=== PATIENT | male | born 1965 | race Caucasian/White ===

== ENCOUNTER 2016-03-18 09:40 | Inpatient (IN) | payer MEDICAID ==
[2016-03-18] MEDS ORDERED: NS 1,000 ML IV ONE (09:56)
[2016-03-18] MEDS ORDERED: DILTIAZEM 25 MG/5 ML VIAL IV ONE ×2 (09:56→10:54)
[2016-03-18] MEDS ORDERED: SODIUM CHLORIDE 0.9% 10 ML FLUSH FLUSH PRN (09:56)
--- NOTE | 2016-03-18 09:58 | EDPRACDOC ---
- General Information Mode of Arrival: Car - History of Present Illness Onset: 1 HOUR AGO HPI: HERE FOR RAPID HEART BEAT. NO HX OF AFIB OR IRREGULAR HEART BEAT. HEAVY DRINKER. 6PK OR MORE DAILY. LATER SAID HE HAD A NOSEBLEED WHICH HAS NOW STOPPED. DENIES HEMATEMESIS OR HEMATOCHEZIA. Symptoms Started: Reports: Gradually Relevant History: Reports: None Worsens with: Reports: Nothing Associated signs & symptoms: Reports: None Chest Pain Location: Reports: No Pain Pain Quality: Reports: None Pain Radiation: Reports: None <Osmany Willis - Last Filed: 03/18/16 11:36> <Yojana Brito - Last Filed: 03/18/16 22:00> - General Information Stated Complaint: HEART PALPITATIONS/NOSE BLEED Time Seen by Provider: 03/18/16 09:56 Home Medications: Home Medications Alprazolam [Xanax] 1 mg PO BID PRN 11/09/13 Amlodipine [Norvasc] 10 mg PO DAILY 11/09/13 CloNIDine (Antihypertensive) [Catapres] 0.2 mg PO TID 11/09/13 Hydralazine HCl 100 mg PO TID 11/09/13 Lisinopril/Hydrochlorothiazide [Lisinopril-Hctz 20-25 mg Tab] 1 each PO DAILY Metoprolol Tartrate [Lopressor] 50 mg PO BID 11/09/13 Oxycodone HCl [Oxycodone Immediate Release] 15 mg PO QID 11/09/13 Potassium Chloride 10 meq PO DAILY 11/09/13 Allergies/Adverse Reactions: Allergies Allergy/AdvReac Type Severity Reaction Status Date / Time No Known Allergies Allergy Verified 03/18/16 17:10 ED Past Medical History - History Reviewed Yes Nurses notes reviewed and agree except as marked - Patient Medical History Cardiac History: Reports: Hypertension Psychological History: Denies: Depression - Social Medical History Smoking Status: Heavy tobacco smoker (5 or more cigarettes/day or daily pipe/ cigar) <Osmany Willis - Last Filed: 03/18/16 11:36> EDM Review of Systems - Review of Systems ROS Negative Except as Marked: Yes All systems reviewed and were negative except as marked <Osmany Willis - Last Filed: 03/18/16 11:36> - Physical Exam Constitutional: Alert (Awake), No apparent distress Oriented to: Time, Person, Place Last recorded Vital Signs: Last Vital Signs Temp 97.5 F 03/18/16 09:43 Pulse 128 H 03/18/16 09:43 Resp 22 03/18/16 09:43 BP 180/72 H 03/18/16 09:43 Pulse Ox 97 03/18/16 09:43 Oxygen Pulse Oxygen Saturation 97 O2 Device Room Air Oxygen Flow Rate Fraction of Inspired Oxygen ( FIO2) - HEENT Head: Normal ( normocephalic) Eye Exam: Normal (PERRL, EOMI, Sclera white) Oropharynx: Normal (Pharynx:Moist without exudate,Gums-no swelling) ENT EAC: Normal TMJ: Normal Nose: No Symptoms Reported (septum midline) Neck: Normal (FROM, trachea at midline) - Respiratory/Cardiovascular Respiratory: Normal - CTA (BBS clear to auscultation without adventitious sounds ) Cardiovascular: Tachycardia, Irregular - GI Auscultation: Normal (NABS) Palpation: Normal (Soft,No rebound or guarding, non distended) Tenderness: Non tender Smith's Sign: Negative Rectal Exam: Normal, Heme negative stool - Musculoskeletal Back: Normal (Non-Tender) Extremities: Normal (Normal tone, Pulses 2+ No cyanosis or edema, FROM) - Integumentary Skin: Normal, Warm, Dry Lymphatics: Normal (no adenopathy) - Neurologic Memory Impaired: Normal Motor Function: Normal (Normal tone, Pulses 2+ No cyanosis or edema, FROM) Cranial Nerve: Normal (CN II-X11 intact sensation, strength 5/5) Cerebellar: Normal Mood Description: Normal Perception: Normal <Osmany Willis - Last Filed: 03/18/16 11:36> - Physical Exam Last recorded Vital Signs: Last Vital Signs Temp 98.1 F 03/18/16 16:55 Pulse 81 03/18/16 20:00 Resp 18 03/18/16 16:55 BP 142/89 03/18/16 13:41 Pulse Ox 97 03/18/16 20:00 Oxygen Pulse Oxygen Saturation 96 O2 Device Room Air Oxygen Flow Rate 2 Fraction of Inspired Oxygen ( FIO2) <Yojana Brito - Last Filed: 03/18/16 22:00> ED Procedures - Nasal Cautery and Pack Informed of risks, benefits and alternatives described: Yes Informed Consent Signed: Verbal Indication: Anterior Epistaxis Silver Nitrate cautery performed around bleeding site: Yes Hemostasis was obtained: Yes Packing used: Expanding sponge <Osmany Willis - Last Filed: 03/18/16 11:36> - Nasal Cautery and Pack Nasal Cautery and Pack Notes:: THE NASAL PACK FELL OUT WHILE PT AN INPATIENT. DR. DUARTE IS NOT DETECTIVE PRECINCT, SO DR. DOMINGUEZ ASKED ME TO RE PACK PATIENT. I SPOKE WITH PT AND HE WAS IN AGREEMENT. THE PT CLEARED CLOTS FROM HIS NOSE. HIS RIGHT NARE WAS PACKED WITH A RAPID RHINO. 5 CC OF AIR WAS PLACED IN THE BALLOON. PT TOLERATED PROCEDURE WELL. <Yojana Brito - Last Filed: 03/18/16 22:00> - Results 03/18/16 10:05 03/18/16 10:05 - EKG EKG #1 Kiefer: Normal Rhythm: Afib Block: None Hypertrophy: None ST: Normal <Osmany Willis - Last Filed: 03/18/16 11:36> - Results 03/18/16 10:05 03/18/16 10:05 WBC 6.5 xk/uL (3.8-10.8) 03/18/16 10:05 RBC 4.45 xM/uL (4.70-6.10) L 03/18/16 10:05 Hgb 14.7 g/dL (14.0-18.0) 03/18/16 10:05 Hct 42.3 % (42-52) 03/18/16 10:05 MCV 95 fL (80-94) H 03/18/16 10:05 MCH 33.1 pg (27-32) H 03/18/16 10:05 MCHC 34.8 g/dl (33-36) 03/18/16 10:05 RDW 12.9 % (11.5-14.5) 03/18/16 10:05 Plt Count 243 xk/uL (130-400) 03/18/16 10:05 MPV 7.7 fL (7.4-10.4) 03/18/16 10:05 Neut % (Auto) 60.1 % (45-76) 03/18/16 10:05 Lymph % (Auto) 26.6 % (17-44) 03/18/16 10:05 [place] % (Auto) 9.2 % (3-10) 03/18/16 10:05 Eos % (Auto) 2.2 % (0-5) 03/18/16 10:05 Baso % (Auto) 1.9 % (0-2) 03/18/16 10:05 Absolute Neuts (auto) 3.90 xk/uL (1.7-8.2) 03/18/16 10:05 Absolute Lymphs (auto) 1.69 xk/uL (0.65-4.75) 03/18/16 10:05 PT 9.8 SEC (9.2-11.2) 03/18/16 10:05 INR 1.0 03/18/16 10:05 APTT 26.4 SEC (22-35) 03/18/16 10:05 Sodium 143 mEq/L (137-146) 03/18/16 10:05 Potassium 3.7 mEq/L (3.5-5.1) 03/18/16 10:05 Chloride 104 mEq/L (98-107) 03/18/16 10:05 Carbon Dioxide 23 mMOL/L (22-33) 03/18/16 10:05 Anion Gap 20 mEq/L (8-16) H 03/18/16 10:05 BUN 9 MG/DL (9-20) 03/18/16 10:05 Creatinine 0.60 MG/DL (0.66-1.25) L 03/18/16 10:05 Estimated GFR (MDRD) > 60 mL/min (>=60) 03/18/16 10:05 Glucose 140 MG/DL (70-99) H 03/18/16 10:05 Calculated Osmolality 276 MOs/Kg (270-290) 03/18/16 10:05 Calcium 9.4 MG/DL (8.4-10.2) 03/18/16 10:05 Total Bilirubin 0.6 MG/DL (0.2-1.3) 03/18/16 10:05 AST 44 IU/L (17-59) 03/18/16 10:05 ALT 39 IU/L (21-72) 03/18/16 10:05 Alkaline Phosphatase 99 IU/L (38-126) 03/18/16 10:05 Troponin I 0.04 ng/mL (<.04) 03/18/16 17:00 Rnt-R-Sywvmhyypxd Pept 376 pg/mL (0-450) 03/18/16 10:05 Total Protein 8.0 G/DL (6.3-8.2) 03/18/16 10:05 Albumin 4.3 G/DL (3.5-5.0) 03/18/16 10:05 TSH 0.92 uIU/mL (0.5-4.67) 03/18/16 10:05 Lab Results 03/18/16 03/18/16 03/18/16 10:05 10:05 10:05 WBC 6.5 RBC 4.45 L Hgb 14.7 Hct 42.3 MCV 95 H MCH 33.1 H MCHC 34.8 RDW 12.9 Plt Count 243 MPV 7.7 Neut % (Auto) 60.1 Lymph % (Auto) 26.6 [place] % (Auto) 9.2 Eos % (Auto) 2.2 Baso % (Auto) 1.9 Absolute Neuts (auto) 3.90 Absolute Lymphs (auto) 1.69 PT 9.8 INR 1.0 APTT 26.4 Sodium Potassium Chloride Carbon Dioxide Anion Gap BUN Creatinine Estimated GFR (MDRD) Glucose Calculated Osmolality Calcium Total Bilirubin AST ALT Alkaline Phosphatase Troponin I Nmo-Z-Rgywbcamwqa Pept Total Protein Albumin TSH 0.92 03/18/16 10:05 WBC RBC Hgb Hct MCV MCH MCHC RDW Plt Count MPV Neut % (Auto) Lymph % (Auto) [place] % (Auto) Eos % (Auto) Baso % (Auto) Absolute Neuts (auto) Absolute Lymphs (auto) PT INR APTT Sodium 143 Potassium 3.7 Chloride 104 Carbon Dioxide 23 Anion Gap 20 H BUN 9 Creatinine 0.60 L Estimated GFR (MDRD) > 60 Glucose 140 H Calculated Osmolality 276 Calcium 9.4 Total Bilirubin 0.6 AST 44 ALT 39 Alkaline Phosphatase 99 Troponin I < 0.01 Pht-Q-Nucjxsspnwo Pept 376 Total Protein 8.0 Albumin 4.3 TSH <Yojana Brito - Last Filed: 03/18/16 22:00> ED Critical Care Note - Critical Care Note Total Time (mins): 34 <Osmany Willis - Last Filed: 03/18/16 11:36> - Departure Yes I personally saw and evaluated the patient. Disposition: Admit IP To This Hospital Decision to Admit Time: 11:36 (MITALI) Decision to admit date: 03/18/16 Decision to admit: from ED <Osmany Willis - Last Filed: 03/18/16 11:36> <Yojana Brito - Last Filed: 03/18/16 22:00> - Departure Condition: Good Final Diagnosis: Palpitations, NEW ONSET AFIB WITH RVR, EPISTAXIS, NASAL PACKING BY ANNABELLE, NASAL PACKING BY LEIA
[2016-03-18] MEDS ORDERED: Enoxaparin 1 mg per kg per dose SQ ONE (10:05)
[2016-03-18 10:15] LABS: AUTOMATED BASOPHIL 1.9 % (0-2); AUTOMATED EOSINOPHIL 2.2 % (0-5); AUTOMATED LYMPH 26.6 % (17-44); AUTOMATED MONOCYTE 9.2 % (3-10); AUTOMATED NEUTROPHIL 60.1 % (45-76); MPV 7.7 fL (7.4-10.4)
[2016-03-18] MEDS ORDERED: ENOXAPARIN SODIUM 80 MG, ENOXAPARIN SODIUM 30 MG SQ ONE ×2 (10:15)
[2016-03-18 10:30] LABS: BLOOD UREA NITROGEN 9 MG/DL (9-20); CALCIUM 9.4 MG/DL (8.4-10.2); CALCULATED OSMOLALITY 276 MOs/Kg (270-290); CHLORIDE 104 mEq/L (98-107); GLUCOSE 140 MG/DL (70-99); SODIUM LEVEL 143 mEq/L (137-146)
[2016-03-18 10:33] LABS: PARTIAL THROMB. TIME 26.4 SEC (22-35)
--- NOTE | 2016-03-18 10:53 | DIRPT ---
CLINICAL DATA: Rapid heartbeat and chest pain. EXAM: PORTABLE CHEST 1 VIEW COMPARISON: 12/31/2015 FINDINGS: Heart is enlarged. There is pulmonary vascular congestion. No overt edema. No focal consolidations or pleural effusions. IMPRESSION: 1. Shallow inflation. 2. Cardiomegaly. Electronically Signed By: Vicky Alonso M.D. On: 03/18/2016 10:51
[2016-03-18] MEDS ORDERED: Diltiazem HCl 100 MG in D5W 100 ML IV SCH (10:55)
[2016-03-18] MEDS ORDERED: PANTOPRAZOLE 40 MG VIAL IV ONE (10:59)
[2016-03-18] MEDS ORDERED: CHLORDIAZEPOXIDE 25 MG CAP PO SCH ×2 (11:00)
[2016-03-18] MEDS ORDERED: SILVER NITRATE APPLICATOR TOP ONE (11:23)
[2016-03-18] MEDS ORDERED: COCAINE 4% TOPICAL SOLN 4 ML BOT TOP ONE (11:23)
[2016-03-18] MEDS ORDERED: NITROGLYCERINE 0.4 MG TAB SL PRN (12:15)
[2016-03-18] MEDS ORDERED: Non-Formulary Medication ITEM (Alprazolam [Xanax] 1 MG) PO PRN (12:37)
--- NOTE | 2016-03-18 12:40 | HISTPHYS ---
- Chief Complaint Awakened 8:30am this morning with palpitations and knows blood either right side of his nostril and tightness in his chest. - History of Present Illness Patient is a 50-year-old white male who came in the emergency room this morning complaining of palpitations upon awakening right nose bleed coughing up blood from the nose bleed add tightness in his chest. He was seen by the emergency room doctor who was concerned about his rapid atrial fib finding a rate between 150 and 170 he was given IV Cardizem right naris was packed and because of the atrial fib and chest pain was given a full dose of Lovenox. The patient admits to taking up to 10 aspirin a day in addition to intermittent Naprosyn. He has a history of hypertension for which she takes multiple medications and blood pressure is documented 180/70 when he initially arrived. He also smokes a half pack cigarettes a day in addition to the 2-6 packs of beer a day he consumes. He has never had any problems with irregular heartbeat or chest discomfort nor has he had any issues with a nose bleed. - Medical History Cardiac History: Reports: Hypertension Musculoskeletal History: Reports: Arthritis, Osteoarthritis Neurological History: Reports: Other (Chronic back pain leg pain arm pain from previous trauma.) Psychological History: Denies: Depression - Surgical History Reports: Other (Musculoskeletal surgeries for multiple injuries including a fractured neck) Right arm plate and other surgeries from trauma he suffered over the years. - Medictions/Allergies Allergies No Known Allergies Allergy (Verified 03/18/16 10:56) Current Medication List: Reviewed Home Medications Alprazolam [Xanax] 1 mg PO BID PRN 11/09/13 Amlodipine [Norvasc] 10 mg PO DAILY 11/09/13 CloNIDine (Antihypertensive) [Catapres] 0.2 mg PO TID 11/09/13 Hydralazine HCl 100 mg PO TID 11/09/13 Lisinopril/Hydrochlorothiazide [Lisinopril-Hctz 20-25 mg Tab] 1 each PO DAILY Metoprolol Tartrate [Lopressor] 50 mg PO BID 11/09/13 Oxycodone HCl [Oxycodone Immediate Release] 15 mg PO QID 11/09/13 Potassium Chloride 10 meq PO DAILY 11/09/13 - Family History Reports: Hypertension - Social History Travel Outside of [place] in the Last 3 Months?: No Lives: with Significant Other Smoking Status: Heavy tobacco smoker (5 or more cigarettes/day or daily pipe/ cigar) Social History: Reports: Alcohol Use (Two 6 packs of beer a day). Denies: Substance Use Disorder - Review of Systems Constitutional: No Symptoms Reported (No Fever, chills, wt loss/gain, diaphoresis,fatigue/malaise.) Eyes: No Symptoms Reported (No blurry vision, visual changes, eye pain, or eye redness.) Ears: No Symptoms Reported (No ear pain or discharge) Nose: Bleeding (Right nostril), Congestion (With packing) Mouth: No Symptoms Reported (No oropharyngeal lesions or erythema) Throat/Neck: No Symptoms Reported (No throat pain or swelling.No oropharyngeal lesions or erythema.) Respiratory: No Symptoms Reported (No cough, wheezing, or shortness of breath.) Cardiovascular: Chest Pain (Associated with his palpitation), Palpitations Gastrointestinal: No Symptoms Reported (No abdominal pain, nausea, vomiting, diarrhea, constipation, or bloody stool.) Genitourinary: No Symptoms Reported (No dysuria or hematuria.) Neurological: No Symptoms Reported (No headache, dizziness, seizures, or focal weakness.) Musculoskeletal:: Arthritis, Stiffness, Other (Multiple limb pain due to previous surgeries and fractures) Integumentary: No Symptoms Reported (no rashes or lesions) Allergic/Immunologic: No Symptoms Reported (no rashes or lesions) Hematologic: Easy Bleeding (Now with the nose bleed and taking multiple aspirins and Naprosyn) Endocrine: No Symptoms Reported (No thyroid issues, polyuria, or polydipsia.) Psychiatric: No Symptoms Reported (Fully oriented, with normal and appropriate affect.) - Physical Exam Vital Signs: Initial Vitals Temperature 97.5 F 03/18/16 09:43 Pulse Rate 128 H 03/18/16 09:43 Respiratory Rate 22 03/18/16 09:43 Blood Pressure 180/72 H 03/18/16 09:43 Pulse Oxygen Saturation 97 03/18/16 09:43 Constitutional: Alert (Awake, Fully oriented. Normal and appropriate affect.Well appearing. Well nourished.), No apparent distress Oriented to: Time, Person, Place - HEENT Head: Normal (normocephalic, atraumatic.), Other (No cervical lymphadenopathy. No supraclavicular lymphadenopathy. Neck: No palpable mass, supple , trachea midline.) Eye: Normal (pupils equal, reactive to light, and round; EOMI, Sclera white) Oropharynx: Normal (Pharynx: Moist without exudate,Gums-no swelling, No oropharyngeal lesions or erythema, Mucous membranes are dry.) ENT EAC: Normal (No oropharyngeal lesions or erythema. Mucous membranes are dry. ) TMJ: Normal Nose: Bleeding (Right nostril with packing intact and strength attached unfortunately had is come out and needs epi stat balloon), Other (Right nostril oozing blood) Respiratory: Normal - CTA (Clear to auscultation bilaterally. No wheezing, rales , rhonchi. Chest wall movements are symmetric. No use of accessory muscles to breathe.) Cardiovascular: Tachycardia, Irregular. negative: Diastolic murmur, Systolic murmur, Gallop/S3, Gallop/S4 - GI Auscultation: Normal (normal active sounds) Palpation: Normal (Soft,non distended,nontender. No hepatosplenomegaly.) Tenderness: Non tender (No rebound or guarding) Smith's Sign: Negative - Musculoskeletal Back: Normal (Non-Tender) Extremities: Normal (Normal tone, DP pulses 2+ bilaterally, No cyanosis or edema bilaterally, FROM bilaterally.) Spine: abnormal alignment, limited range of motion, muscle spasm, painful range of motion. negative: normal alignment - Integumentary Skin: Normal (Clean, dry, and intact. No rashes. No lesions.) Lymphatics: Normal (No cervical lymphadenopathy. No supraclavicular lymphadenopathy.) - Neurologic Memory Impaired: Normal Motor Function: Normal (Motor 5/5 throughout.Normal tone, Pulses 2+ No cyanosis or edema, FROM) Cranial Nerve: Normal (CN II-XII intact sensation, strength 5/5) Cerebellar: Normal (Babinski: toes downgoing bilaterally. Intact Finger to nose. Sensory grossly intact to light touch. Intact rapid alternating movements bilaterally. No pronator drift.) Mood Description: Agitated (Mildly agitated with bleeding nose) Thought: Coherent Perception: Normal (Normal and appropriate affect.) - Focused CV Perfusion Exam Vital Signs: Last Vital Signs Temp 97.5 F 03/18/16 09:43 Pulse 135 H 03/18/16 12:32 Resp 18 03/18/16 12:32 BP 149/74 03/18/16 12:32 Pulse Ox 96 03/18/16 12:32 - Lab Results 03/18/16 10:05 03/18/16 10:05 Laboratory Results - last 24 hr 03/18/16 03/18/16 03/18/16 10:05 10:05 10:05 WBC 6.5 RBC 4.45 L Hgb 14.7 Hct 42.3 MCV 95 H MCH 33.1 H MCHC 34.8 RDW 12.9 Plt Count 243 MPV 7.7 Neut % (Auto) 60.1 Lymph % (Auto) 26.6 [place] % (Auto) 9.2 Eos % (Auto) 2.2 Baso % (Auto) 1.9 Absolute Neuts (auto) 3.90 Absolute Lymphs (auto) 1.69 PT 9.8 INR 1.0 APTT 26.4 Sodium 143 Potassium 3.7 Chloride 104 Carbon Dioxide 23 Anion Gap 20 H BUN 9 Creatinine 0.60 L Estimated GFR (MDRD) > 60 Glucose 140 H Calculated Osmolality 276 Calcium 9.4 Total Bilirubin 0.6 AST 44 ALT 39 Alkaline Phosphatase 99 Troponin I < 0.01 Xxn-O-Gztqcrzoxsj Pept 376 Total Protein 8.0 Albumin 4.3 TSH 03/18/16 03/18/16 03/18/16 10:05 13:00 17:00 WBC RBC Hgb Hct MCV MCH MCHC RDW Plt Count MPV Neut % (Auto) Lymph % (Auto) [place] % (Auto) Eos % (Auto) Baso % (Auto) Absolute Neuts (auto) Absolute Lymphs (auto) PT INR APTT Sodium Potassium Chloride Carbon Dioxide Anion Gap BUN Creatinine Estimated GFR (MDRD) Glucose Calculated Osmolality Calcium Total Bilirubin AST ALT Alkaline Phosphatase Troponin I 0.03 0.04 Ztp-Y-Itwoyyloiqo Pept Total Protein Albumin TSH 0.92 - Diagnostic Findings EKG shows rapid atrial fib - Assessment (1) Paroxysmal atrial fibrillation I48.0 - PAROXYSMAL ATRIAL FIBRILLATION Acute Present on Admission: Yes IV Cardizem in emergency room and p.o. Lopressor was increased. Patient already on Norvasc but may need to switch the Norvasc to Cardizem should the increase Lopressor not help. Patient already on Catapres for blood pressure and should help heart rate. (2) Bleeding nose R04.0 - EPISTAXIS Acute Present on Admission: Yes Packing inserted into right nostril by Dr. Willis unfortunately came out and balloon had to be inserted. Afrin spray in left nostril 2 sprays every 8 hours 3 days. Bleed is made worse by Lovenox injection and patient's consumption of aspirin and Naprosyn. (3) Tobacco abuse Z72.0 - TOBACCO USE Acute Present on Admission: Yes Discussed smoking cessation. (4) Alcohol abuse F10.10 - ALCOHOL ABUSE, UNCOMPLICATED Acute Present on Admission: Yes Discussed alcohol consumption cessation. Cover with p.r.n. detox orders and multiple vitamins checking magnesium and phosphorus. (5) Chronic back pain M54.9 - DORSALGIA, UNSPECIFIED; G89.29 - OTHER CHRONIC PAIN Acute Present on Admission: Yes Qualifiers: Back pain location: thoracic back pain Back pain laterality: midline Qualified Code(s): M54.6 - Pain in thoracic spine; G89.29 - Other chronic pain (6) Palpitations R00.2 - PALPITATIONS Acute Present on Admission: Yes Atrial fib causing the sensation of palpitations. Case Care Discussed with: Patient, Nursing Staff, Resource Management Total Time: Time spent process One Hour 25 minutes Critical Care: No Code: [id number]
[2016-03-18] MEDS ORDERED: Pharmacy Order Set Alert SCH (13:00)
[2016-03-18] MEDS ORDERED: METOPROLOL 5 MG/5 ML SDV IV PRN (13:39)
[2016-03-18] MEDS ORDERED: HYDRALAZINE HCL 100 MG PO SCH (14:00)
[2016-03-18] MEDS: OXYCODONE HCL 5 MG TABLET PO SCH ×2 (14:09→19:52)
[2016-03-18] MEDS: CloNIDine 0.2 MG TAB PO SCH ×2 (14:09→22:56)
[2016-03-18] MEDS ORDERED: LORAZEPAM 1 MG TAB PO PRN ×2 (15:46)
[2016-03-18] MEDS ORDERED: LORAZEPAM 2 MG/ML VIAL IV PRN (15:46)
[2016-03-18] MEDS ORDERED: Medication Special Instructions SCH (16:00)
[2016-03-18] MEDS ORDERED: Alcohol Withdrawal Scale Orders XX SCH ×2 (16:00)
[2016-03-18] MEDS ORDERED: Non-Formulary Medication ITEM (Oxycodone Hcl [Oxycodone Immediate Release] 15 MG) PO SCH (16:00)
[2016-03-18] MEDS ORDERED: Vaccine Screening Complete SCH (18:00)
[2016-03-18] MEDS: METOPROLOL TARTRATE 25 MG TAB PO SCH (18:34)
[2016-03-18] MEDS: PANTOPRAZOLE 40 MG TAB PO SCH (19:48)
[2016-03-18] MEDS: LORAZEPAM 2 MG/ML VIAL IV PRN (19:53)
[2016-03-18] MEDS: MORPHINE 2 MG/ML INJECTION IV PRN ×2 (20:33→21:43)
[2016-03-18] MEDS ORDERED: METOPROLOL TARTRATE 50 MG TAB PO SCH (21:00)
[2016-03-18] MEDS ORDERED: DICYCLOMINE 20 MG TAB PO PRN (22:35)
[2016-03-18] MEDS: OXYMETAZOLINE 0.05% NASAL SPRAY NAS SCH (22:50)
[2016-03-18] MEDS: ALPRAZOLAM 0.5 MG TAB PO PRN (22:55)
[2016-03-18] MEDS ORDERED: OXYMETAZOLINE 0.05% NASAL SPRAY NAS SCH (23:00)
[2016-03-18 23:26] LABS: MPV 8.5 fL (7.4-10.4)
[2016-03-19] MEDS: LORAZEPAM 2 MG/ML VIAL IV PRN ×2 (00:16→05:09)
[2016-03-19] MEDS: MORPHINE 2 MG/ML INJECTION IV PRN ×3 (00:16→20:23)
[2016-03-19] MEDS: OXYCODONE HCL 5 MG TABLET PO SCH ×4 (03:18→19:37)
[2016-03-19] MEDS: PANTOPRAZOLE 40 MG TAB PO SCH ×2 (04:37→16:21)
[2016-03-19] MEDS: CloNIDine 0.2 MG TAB PO SCH ×3 (04:37→19:38)
[2016-03-19 05:40] LABS: ALL NEG? NO
[2016-03-19 05:47] LABS: MDMA* NEG (NEGATIVE); METHAMPHETAMINES NEG (NEGATIVE)
[2016-03-19 05:48] LABS: OXYCODONE *POSITIVE* (NEGATIVE)
[2016-03-19 05:50] LABS: LDL (calc.) 86.4 MG/DL (<100); VLDL (calc.) 37.6 MG/DL (5-40)
[2016-03-19] MEDS: OXYMETAZOLINE 0.05% NASAL SPRAY NAS SCH ×2 (06:15→13:23)
[2016-03-19] MEDS ORDERED: FLU VACCINE (Afluria) 0.5 ML DOSE IM ONE (08:00)
[2016-03-19] MEDS ORDERED: PNEUMOCOCCAL 0.5 ML VIAL IM ONE (08:00)
[2016-03-19] MEDS ORDERED: Non-Formulary Medication ITEM (Potassium Chloride [Potassium Chloride] 10 MEQ) PO SCH (09:00)
[2016-03-19] MEDS: METOPROLOL TARTRATE 25 MG TAB PO SCH ×2 (09:32→19:38)
[2016-03-19] MEDS: POTASSIUM CHLORIDE 10 MEQ TABLET PO SCH (09:32)
[2016-03-19] MEDS: HYDROCHLOROTHIAZIDE 25 MG TAB PO SCH (09:32)
[2016-03-19] MEDS: VITAMINS,PRENATAL TABLET PO SCH (09:33)
[2016-03-19] MEDS: LISINOPRIL 20 MG TAB PO SCH (09:33)
[2016-03-19] MEDS: THIAMINE 100 MG TAB PO SCH (09:33)
[2016-03-19] MEDS: LORAZEPAM 1 MG TAB PO PRN (09:33)
[2016-03-19] MEDS: AMLODIPINE 10 MG TAB PO SCH (09:33)
[2016-03-19] MEDS ORDERED: ENOXAPARIN 60 MG/0.6 ML PFS SQ SCH (10:00)
[2016-03-19] MEDS ORDERED: SODIUM CHLORIDE 0.9% 5 ML FLUSH FLUSH PRN (10:41)
--- NOTE | 2016-03-19 10:43 | HIMOPRPT ---
DATE OF PROCEDURE: 03/19/16 PREOPERATIVE DIAGNOSIS: atrial fibrillation, epistaxis, need for IV access. POSTOPERATIVE DIAGNOSIS: Same PROCEDURE: Insertion of a right internal jugular 16 cm triple-lumen venous access catheter under ultrasound guided localization of the vein. SURGEON: Gabriel Bhardwaj MD ANESTHESIA: Local with 1% Xylocaine COMPLICATIONS: None, chest x-ray is pending. SPECIMENS: None PACKINGS AND DRAINS: None. BLOOD LOSS: 0 cubic centimeters. OPERATIVE FINDINGS AND TECHNIQUE: With consent the patient was seen at his bedside in room 444 of the PCU. The patient is placed in Trendelenburg position. The right neck and right subclavian areas were prepped and draped in the usual fashion. Ultrasound interrogation of the right neck revealed a widely patent right internal jugular vein in its normal anatomic location lateral to the carotid artery. Area of skin overlying the right internal jugular vein was injected with 1% Xylocaine. Under ultrasound guidance the right internal jugular vein was penetrated quite easily. Guidewire was threaded and met no resistance. Skin incision was made in the tract was dilated. 16 cm triple-lumen venous access catheter was then placed over the guidewire. All 3 ports of the catheter had excellent blood return and easy flush. The catheter sewn with 3-0 silk suture. Dressings were applied. Chest x-ray is pending.
--- NOTE | 2016-03-19 10:49 | PCM.SURGCO ---
Consultation Date: 03/19/16 Requesting Physician: Roger Steinberg [employer] Analyst: Gabriel Bhardwaj Consult Reason: Line Placement, Poor Venous Access, Other (Atrial fibrillation, epistaxis) - History of Present Illness 50-year-old white male who was admitted to the hospitalist service after come to the emergency department yesterday complaining of palpitations. He also was noted to have blood coming from his nose and coughed up blood reportedly. He also had some tightness in his chest. He was seen in emergency room some and had seen a physician who was concerned about rapid atrial fibrillation. He was given IV Cardizem and had his nose packed. He had been given a full dose of Lovenox as well. Patient also admits to taking multiple dose of aspirin daily in addition to nonsteroidal anti-inflammatory medication. He has a history medication and was hypertensive on arrival. He is a smoker and also drinks alcohol. He denies ever having problems with chest tightness heart problems or nosebleeds in the past. Patient was admitted to the hospitalist service for continuing management therapy. He ran out of IV access sites and I have been asked to place central line in the patient as is deemed necessary to have continue IV access for continuing monitoring and therapy. Chief Complaint: Awakened 8:30am this morning with palpitations and knows blood either right side of his nostril and tightness in his chest. - Past Medical and Surgical History Cardiac History: Reports: Hypertension Musculoskeletal History: Reports: Arthritis, Osteoarthritis Psychological History: Reports: Alcoholism (Two 6 packs of beer a day). Denies : Depression, Substance Use Disorder Neurological History: Reports: Other (Chronic back pain leg pain arm pain from previous trauma.) Past Surgical History: Reports: Other (Musculoskeletal surgeries for multiple injuries including a fractured neck) Allergies No Known Allergies Allergy (Verified 03/18/16 17:10) Home Medications Alprazolam [Xanax] 1 mg PO BID PRN 11/09/13 Amlodipine [Norvasc] 10 mg PO DAILY 11/09/13 CloNIDine (Antihypertensive) [Catapres] 0.2 mg PO TID 11/09/13 Hydralazine HCl 100 mg PO TID 11/09/13 Lisinopril/Hydrochlorothiazide [Lisinopril-Hctz 20-25 mg Tab] 1 each PO DAILY Metoprolol Tartrate [Lopressor] 50 mg PO BID 11/09/13 Oxycodone HCl [Oxycodone Immediate Release] 15 mg PO QID 11/09/13 Potassium Chloride 10 meq PO DAILY 11/09/13 - Social History Travel Outside of [place] in the Last 3 Months?: No Lives: with Significant Other Smoking Status: Heavy tobacco smoker (5 or more cigarettes/day or daily pipe/ cigar) Social History: Reports: Alcohol Use (Two 6 packs of beer a day). Denies: Substance Use Disorder - Family History Reports: Hypertension - Review of Systems Yes All systems reviewed and were negative except as marked Nose: Bleeding Respiratory: Other (Chest tightness) Cardiovascular: Palpitations - Physical Exam Vital Signs: Initial Vitals Temperature 97.5 F 03/18/16 09:43 Pulse Rate 128 H 03/18/16 09:43 Respiratory Rate 22 03/18/16 09:43 Blood Pressure 180/72 H 03/18/16 09:43 Pulse Oxygen Saturation 97 03/18/16 09:43 Exam: General: Pleasant male No acute distress. HEENT: Normocephalic atraumatic. Sclerae nonicteric. Extraocular movements intact. Oral mucosa pink and moist. Neck: Supple. Nontender. Good range of motion. No masses. Trachea is midline. No cervical adenopathy. Nose is packed Lungs: Clear to auscultation. No rhonchi or wheezing. Good excursion. Heart: Tachycardic Abdomen: Soft, nontender, morbidly obese, normoactive bowel sounds, nondistended. Back: No CVA tenderness. No ecchymosis. Extremities: No obvious deformities Skin: No jaundice Neurologic: No obvious focal deficits - Lab Results 03/18/16 23:05 03/19/16 05:00 - Assessment/Plan (1) Paroxysmal atrial fibrillation I48.0 - PAROXYSMAL ATRIAL FIBRILLATION Acute Present on Admission: Yes Comment: Patient will require central line access for continued IV therapy and monitoring. Will place central line at the bedside under ultrasound guidance. The rationale for this was discussed with the patient as were risks and benefits. Patient is increased risk due to his full anticoagulation with a dose of Lovenox previously. (2) Bleeding nose R04.0 - EPISTAXIS Acute Comment: Plan central line placement. (3) Adult BMI 40.0-44.9 kg/sq m Z68.41 - BODY MASS INDEX (BMI) 40.0-44.9, ADULT Chronic Present on Admission: Yes Comment: Increases his perioperative and periprocedural risks. Weight loss as an outpatient would be highly recommended. Case Care Discussed with: Patient, Consultants, Nursing Staff
[2016-03-19] MEDS ORDERED: CHLORDIAZEPOXIDE 25 MG CAP PO SCH (11:00)
--- NOTE | 2016-03-19 12:06 | DIRPT ---
CLINICAL DATA: Line placement EXAM: PORTABLE CHEST 1 VIEW COMPARISON: 03/18/2016 FINDINGS: Interval placement of a RIGHT central venous line with tip in the distal SVC. No pneumothorax. Stable enlarged cardiac silhouette with low lung volumes. IMPRESSION: RIGHT central venous line placed without complication. Electronically Signed By: Skyler Brandon M.D. On: 03/19/2016 12:03
--- NOTE | 2016-03-19 14:37 | GENMEDPROG ---
Chief Complaint: Issues with nose bleeding and fullness in the right side of his sinus with the balloon stopping his nose bleed but has not lost a significant amount of blood due to it. Notes Reviewed: Yes Events from last night noted and discussed with Clinical Staff Current Medication List: Reviewed DVT Prophylaxis: Yes - Physical Examination Vital Signs and I&O: Last Vital Signs Temp 98.2 F 03/19/16 11:30 Pulse 62 03/19/16 12:28 Resp 16 03/19/16 11:30 BP 143/81 03/19/16 11:30 Pulse Ox 97 03/19/16 11:30 Oxygen Pulse Oxygen Saturation 97 O2 Device Room Air Oxygen Flow Rate Fraction of Inspired Oxygen ( FIO2) Intake & Output 03/16/16 03/17/16 03/18/16 03/19/16 23:59 23:59 23:59 23:59 Intake Total 240 1252 Output Total 400 1600 Balance -160 -348 Patient's weight 107.139 kg 107.076 kg General: Alert, Oriented x3, No acute distress, Well appearing, Well nourished HEENT: Normal (Normocephalic, atraumatic;EOMI.Sclera white, Nares patent, without discharge or bleeding. No oropharyngeal lesions or erythema. Mucous membranes are dry.) Neck: Non-tender, Full range of motion, Normal Trachea alignment, Normal inspection (No cervical lymphadenopathy. No supraclavicular lymphadenopathy.), No Masses palpable, Supple Lymphatics: Normal (No cervical lymphadenopathy. No supraclavicular lymphadenopathy.) Respiratory: Normal - CTA (Clear to auscultation bilaterally. No wheezing, rales , rhonchi. Chest wall movements are symmetric. No use of accessory muscles to breathe.) Cardiovascular: Regular rate and rhythm (No bradycardia or tachycardia), Normal S1, No Gallops,Rubs/Murmurs, Normal S2, Good Pedal Pulses (DP pulses 2+ bilaterally) GI: Normal bowel sounds (normal active sounds), Soft (non-distended), Non tender , No hepatospenomegaly, No masses Extremities/Musculoskeletal: Normal pulses (DP pulses 2+ bilaterally) Skin: Warm,Dry and Intact, No rashes, No significant lesion Neurological: Strength at 5/5 X4 ext (Motor 5/5 throughout.), Normal tone, Cranial nerves 3-12 NL ( 2-12 grossly intact.) Psych/Mental Status: Appropriate, Normal Affect Lab/DI/Studies Reviewed: 03/18/16 23:05 03/19/16 05:00 Laboratory Results - last 24 hr 03/18/16 03/18/16 03/18/16 23:05 23:05 23:05 WBC 9.0 RBC 3.95 L Hgb 13.1 L D Hct 37.7 L MCV 95 H MCH 33.1 H MCHC 34.7 RDW 13.4 Plt Count 227 MPV 8.5 Glucose Phosphorus 2.9 Magnesium 1.90 Triglycerides Cholesterol LDL Cholesterol, Calc VLDL Cholesterol, Calc HDL Cholesterol Cholesterol/HDL Ratio Urine Opiates Screen Ur Oxycodone Screen Urine Methadone Screen Ur Barbiturates Screen Ur Tricyclics Screen Ur Phencyclidine Scrn Ur Amphetamines Screen U Methamphetamines Scrn Urine MDMA Screen U Benzodiazepines Scrn Urine Cocaine Screen Ur THC Screen RPR Nonreactive 03/19/16 03/19/16 04:30 05:00 WBC RBC Hgb Hct MCV MCH MCHC RDW Plt Count MPV Glucose 115 H Phosphorus Magnesium Triglycerides 188 H Cholesterol 174 LDL Cholesterol, Calc 86.4 VLDL Cholesterol, Calc 37.6 HDL Cholesterol 50.0 Cholesterol/HDL Ratio 3.5 Urine Opiates Screen *positive* H Ur Oxycodone Screen *positive* H Urine Methadone Screen Neg Ur Barbiturates Screen Neg Ur Tricyclics Screen Neg Ur Phencyclidine Scrn Neg Ur Amphetamines Screen Neg U Methamphetamines Scrn Neg Urine MDMA Screen Neg U Benzodiazepines Scrn *positive* H Urine Cocaine Screen *positive* H Ur THC Screen *positive* H RPR - Assessment (1) Paroxysmal atrial fibrillation Acute I48.0 - PAROXYSMAL ATRIAL FIBRILLATION Comment/Plan: IV Cardizem in emergency room and p.o. Lopressor was increased. Patient already on Norvasc but may need to switch the Norvasc to Cardizem should the increase Lopressor not help. Patient already on Catapres for blood pressure and should help heart rate. (2) Bleeding nose Acute R04.0 - EPISTAXIS Comment/Plan: Had to have a balloon placed in the right nostril to help cut down on the bleed. Lovenox is wearing off and hemoglobin appears to have stabilized. Still having some bleeding from the nostril and Afrin seems to help. Urine drug screen positive for the cocaine he was given during the nose packing. (3) Alcohol abuse Acute F10.10 - ALCOHOL ABUSE, UNCOMPLICATED Comment/Plan: Discussed alcohol consumption cessation. Appears to be tolerating the Ativan given him for agitation associated with alcohol withdrawal. (4) Chronic back pain Acute M54.9 - DORSALGIA, UNSPECIFIED; G89.29 - OTHER CHRONIC PAIN Qualifiers: Back pain location: thoracic back pain Back pain laterality: midline Qualified Code(s): M54.6 - Pain in thoracic spine; G89.29 - Other chronic pain (5) Palpitations Acute R00.2 - PALPITATIONS Comment/Plan: Atrial fib causing the sensation of palpitations. Apparently he has maintained sinus rhythm since last evening. Would avoid any more anticoagulants this point time. (6) Tobacco abuse Acute Z72.0 - TOBACCO USE Comment/Plan: Discussed smoking cessation. Urine drug screen positive for cocaine due to the nose packing but also has evidence of marijuana and certainly concern with substance abuse. Case Care Discussed with: Patient, Nursing Staff, Resource Management Education/Counseling Given To: Patient Education/Counseling Given Regarding: Diagnosis Total Time: 37 MIN plus 7 minutes discussing smoking cessation Critical Care: No Code: 94739 (12+) (406)
[2016-03-19] MEDS: SODIUM CHLORIDE 0.9% 5 ML FLUSH FLUSH SCH (16:21)
[2016-03-19] MEDS: ALPRAZOLAM 0.5 MG TAB PO PRN (19:36)
[2016-03-19 21:38] LABS: MPV 8.5 fL (7.4-10.4)
[2016-03-20] MEDS: OXYMETAZOLINE 0.05% NASAL SPRAY NAS SCH ×5 (00:06→23:32)
[2016-03-20] MEDS: OXYCODONE HCL 5 MG TABLET PO SCH ×4 (01:22→20:10)
[2016-03-20] MEDS: MORPHINE 2 MG/ML INJECTION IV PRN ×2 (01:23→03:26)
[2016-03-20] MEDS: LORAZEPAM 2 MG/ML VIAL IV PRN (03:31)
[2016-03-20 04:14] LABS: AUTOMATED EOSINOPHIL 2.1 % (0-5); AUTOMATED LYMPH 13.4 % (17-44); AUTOMATED MONOCYTE 9.3 % (3-10); AUTOMATED NEUTROPHIL 74.2 % (45-76); MPV 8.9 fL (7.4-10.4)
[2016-03-20 04:35] LABS: PARTIAL THROMB. TIME 26.8 SEC (22-35)
[2016-03-20] MEDS: LISINOPRIL 20 MG TAB PO SCH (08:04)
[2016-03-20] MEDS: METOPROLOL TARTRATE 25 MG TAB PO SCH (08:04)
[2016-03-20] MEDS: CloNIDine 0.2 MG TAB PO SCH ×3 (08:04→20:13)
[2016-03-20] MEDS: PANTOPRAZOLE 40 MG TAB PO SCH ×2 (08:04→15:55)
[2016-03-20] MEDS: AMLODIPINE 10 MG TAB PO SCH (08:04)
[2016-03-20] MEDS: POTASSIUM CHLORIDE 10 MEQ TABLET PO SCH (08:04)
[2016-03-20] MEDS: VITAMINS,PRENATAL TABLET PO SCH (08:05)
[2016-03-20] MEDS: THIAMINE 100 MG TAB PO SCH (08:05)
[2016-03-20] MEDS: LORAZEPAM 1 MG TAB PO PRN (08:06)
[2016-03-20] MEDS: HYDROCHLOROTHIAZIDE 25 MG TAB PO SCH (08:06)
[2016-03-20] MEDS: SODIUM CHLORIDE 0.9% 5 ML FLUSH FLUSH SCH ×2 (08:06→15:55)
--- NOTE | 2016-03-20 08:43 | CAPUEKG ---
[place], [place] Test Date: 2016-03-20 Pat Name: PAULY MANRIQUE Department: Room: 444 Gender: Male Route Aide: : Requested By: Order Number: Reading MD: Raheem Ford MD Measurements Intervals [place] Rate: 68 P: 40 GA: 166 QRS: 29 QRSD: 92 T: 40 QT: 442 QTc: 469 Interpretive Statements Normal sinus rhythm Normal ECG Electronically Signed On 03-20-16 08:42:16 EST by Raheem Ford MD <[id number]> [id number]
--- NOTE | 2016-03-20 08:43 | CAPUEKG ---
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
--- NOTE | 2016-03-20 08:44 | CAPUEKG ---
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
[2016-03-20] MEDS ORDERED: CELLULOSE,OXIDIZED (SURGICEL) 1 PAD TOP ONE (09:31)
--- NOTE | 2016-03-20 15:26 | GENMEDPROG ---
Chief Complaint: Nose bleed is slowing down little and we are gradually deflating the balloon in his right nostril with relief Notes Reviewed: Yes Events from last night noted and discussed with Clinical Staff Current Medication List: Reviewed DVT Prophylaxis: Yes - Physical Examination Vital Signs and I&O: Last Vital Signs Temp 98.2 F 03/20/16 11:17 Pulse 62 03/20/16 14:57 Resp 19 03/20/16 11:17 BP 164/92 03/20/16 11:17 Pulse Ox 95 03/20/16 11:17 Oxygen Pulse Oxygen Saturation 95 O2 Device Room Air Oxygen Flow Rate Fraction of Inspired Oxygen ( FIO2) Intake & Output 03/17/16 03/18/16 03/19/16 03/20/16 23:59 23:59 23:59 23:59 Intake Total 240 2232 240 Output Total 400 4000 2700 Balance -006 -7777 -7791 Patient's weight 107.139 kg 107.076 kg 106.413 kg General: Alert, Oriented x3, No acute distress, Well appearing, Well nourished HEENT: Normal (Normocephalic, atraumatic;EOMI.Sclera white, Nares patent, without discharge or bleeding. No oropharyngeal lesions or erythema. Mucous membranes are dry.) Neck: Non-tender, Full range of motion, Normal Trachea alignment, Normal inspection (No cervical lymphadenopathy. No supraclavicular lymphadenopathy.), No Masses palpable, Supple Lymphatics: Normal (No cervical lymphadenopathy. No supraclavicular lymphadenopathy.) Respiratory: Normal - CTA (Clear to auscultation bilaterally. No wheezing, rales , rhonchi. Chest wall movements are symmetric. No use of accessory muscles to breathe.) Cardiovascular: Regular rate and rhythm (No bradycardia or tachycardia), Normal S1, No Gallops,Rubs/Murmurs, Normal S2, Good Pedal Pulses (DP pulses 2+ bilaterally) GI: Normal bowel sounds (normal active sounds), Soft (non-distended), Non tender , No hepatospenomegaly, No masses Extremities/Musculoskeletal: Normal pulses (DP pulses 2+ bilaterally) Skin: Warm,Dry and Intact, No rashes, No significant lesion Neurological: Strength at 5/5 X4 ext (Motor 5/5 throughout.), Normal tone, Cranial nerves 3-12 NL ( 2-12 grossly intact.) Psych/Mental Status: Appropriate, Normal Affect Lab/DI/Studies Reviewed: 03/20/16 03:20 03/19/16 05:00 Laboratory Results - last 24 hr 03/19/16 03/20/16 03/20/16 21:25 03:20 03:20 WBC 7.0 8.4 RBC 3.79 L 3.86 L Hgb 12.6 L 12.8 L Hct 36.3 L 37.3 L MCV 96 H 97 H MCH 33.3 H 33.1 H MCHC 34.8 34.2 RDW 13.1 13.1 Plt Count 198 192 MPV 8.5 8.9 Neut % (Auto) 74.2 Lymph % (Auto) 13.4 L Orange % (Auto) 9.3 Eos % (Auto) 2.1 Baso % (Auto) 1.0 Absolute Neuts (auto) 6.22 Absolute Lymphs (auto) 1.09 PT 10.5 INR 1.0 APTT 26.8 Fibrinogen 357 Blood Type Antibody Screen 03/20/16 03/20/16 03:38 08:38 WBC RBC Hgb Hct MCV MCH MCHC RDW Plt Count MPV Neut % (Auto) Lymph % (Auto) Orange % (Auto) Eos % (Auto) Baso % (Auto) Absolute Neuts (auto) Absolute Lymphs (auto) PT 10.7 INR 1.0 APTT 28.0 Fibrinogen Blood Type O POSITIVE Antibody Screen Negative - Assessment (1) Paroxysmal atrial fibrillation Acute I48.0 - PAROXYSMAL ATRIAL FIBRILLATION Comment/Plan: On lopressor changed to labetolol 03/20/16 due to severe htn and getting catapres giving him bradycardia which is improving. Continue his Norvasc. Must stop drinking alcohol. (2) Bleeding nose Acute R04.0 - EPISTAXIS Comment/Plan: Had to have a balloon placed in the right nostril to help cut down on the bleed. Lovenox is wearing off and hemoglobin appears to have stabilized. Still having some bleeding from the nostril and Afrin seems to help. Urine drug screen positive for the cocaine he was given during the nose packing. Now he is getting several days out from the aspirin and platelet adhesiveness is improving. (3) Alcohol abuse Acute F10.10 - ALCOHOL ABUSE, UNCOMPLICATED Comment/Plan: Discussed alcohol consumption cessation. Appears to be tolerating the Ativan given him for agitation associated with alcohol withdrawal. (4) Chronic back pain Acute M54.9 - DORSALGIA, UNSPECIFIED; G89.29 - OTHER CHRONIC PAIN Qualifiers: Back pain location: thoracic back pain Back pain laterality: midline Qualified Code(s): M54.6 - Pain in thoracic spine; G89.29 - Other chronic pain (5) Palpitations Acute R00.2 - PALPITATIONS Comment/Plan: Atrial fib causing the sensation of palpitations. Apparently he has maintained sinus rhythm since last evening. Would avoid any more anticoagulants this point time. (6) Tobacco abuse Acute Z72.0 - TOBACCO USE Comment/Plan: Discussed smoking cessation. Urine drug screen positive for cocaine due to the nose packing but also has evidence of marijuana and certainly concern with substance abuse. Case Care Discussed with: Patient, Nursing Staff Education/Counseling Given To: Patient Education/Counseling Given Regarding: Diagnosis Total Time: 39 min Critical Care: No Code: 37522 (12+)
[2016-03-20] MEDS: LABETALOL 100 MG TAB PO SCH (20:12)
[2016-03-20] MEDS: ALPRAZOLAM 0.5 MG TAB PO PRN (20:23)
[2016-03-20] MEDS ORDERED: VALSARTAN 160 MG TAB PO SCH (21:00)
[2016-03-21] MEDS: OXYCODONE HCL 5 MG TABLET PO SCH ×3 (01:52→14:19)
[2016-03-21 02:56] LABS: AUTOMATED BASOPHIL 1.6 % (0-2); AUTOMATED EOSINOPHIL 4.1 % (0-5); AUTOMATED LYMPH 22.6 % (17-44); AUTOMATED NEUTROPHIL 57.7 % (45-76); MPV 8.9 fL (7.4-10.4)
[2016-03-21] MEDS: LORAZEPAM 1 MG TAB PO PRN (03:56)
[2016-03-21 04:18] VITALS: BMI 43.1
[2016-03-21] MEDS: CloNIDine 0.2 MG TAB PO SCH ×2 (06:01→14:22)
[2016-03-21] MEDS: PANTOPRAZOLE 40 MG TAB PO SCH (06:01)
[2016-03-21] MEDS: OXYMETAZOLINE 0.05% NASAL SPRAY NAS SCH ×2 (06:01→14:18)
[2016-03-21] MEDS: SODIUM CHLORIDE 0.9% 5 ML FLUSH FLUSH SCH (06:06)
[2016-03-21 07:42] VITALS: TEMP 98.1
[2016-03-21] MEDS: POTASSIUM CHLORIDE 10 MEQ TABLET PO SCH (08:41)
[2016-03-21] MEDS: LABETALOL 100 MG TAB PO SCH (08:41)
[2016-03-21] MEDS: HYDROCHLOROTHIAZIDE 25 MG TAB PO SCH (08:42)
[2016-03-21] MEDS: AMLODIPINE 10 MG TAB PO SCH (08:42)
[2016-03-21] MEDS ORDERED: Medication Hold Instructions SCH (09:00)
[2016-03-21] MEDS: VITAMINS,PRENATAL TABLET PO SCH (12:40)
[2016-03-21] MEDS: THIAMINE 100 MG TAB PO SCH (12:40)
[2016-03-21] MEDS: ALPRAZOLAM 0.5 MG TAB PO PRN (12:40)
[2016-03-21 14:24] VITALS: BP 116/66; PULSE 60
--- NOTE | 2016-03-21 14:28 | PCM.DCS92 ---
- Final/Secondary Discharge Diagnosis (1) Paroxysmal atrial fibrillation Acute I48.0 - PAROXYSMAL ATRIAL FIBRILLATION Present on Admission: Yes Comment: On lopressor changed to labetolol 03/20/16 due to severe htn and getting catapres giving him bradycardia which is improving. Continue his Norvasc. Must stop drinking alcohol. (2) Bleeding nose Acute R04.0 - EPISTAXIS Present on Admission: Yes Comment: Had to have a balloon placed in the right nostril to help cut down on the bleed. Lovenox is wearing off and hemoglobin appears to have stabilized. Still having some bleeding from the nostril and Afrin seems to help. Urine drug screen positive for the cocaine he was given during the nose packing. Now he is getting several days out from the aspirin and platelet adhesiveness is improving. (3) Alcohol abuse Acute F10.10 - ALCOHOL ABUSE, UNCOMPLICATED Present on Admission: Yes Comment: Discussed alcohol consumption cessation. Appears to be tolerating the Ativan given him for agitation associated with alcohol withdrawal. (4) Chronic back pain Acute M54.9 - DORSALGIA, UNSPECIFIED; G89.29 - OTHER CHRONIC PAIN Present on Admission: Yes thoracic back pain midline M54.6 - Pain in thoracic spine; G89.29 - Other chronic pain (5) Palpitations Acute R00.2 - PALPITATIONS Present on Admission: Yes Comment: Atrial fib causing the sensation of palpitations. Apparently he has maintained sinus rhythm since last evening. Would avoid any more anticoagulants this point time. (6) Tobacco abuse Acute Z72.0 - TOBACCO USE Present on Admission: Yes Comment: Discussed smoking cessation. Urine drug screen positive for cocaine due to the nose packing but also has evidence of marijuana and certainly concern with substance abuse. Discharge Disposition: Home Discharge Condition: Good Cognitive Discharge Status: Unimpaired Fuctional Discharge Status: Independent Physician Follow up/Referrals: Ryan Woodard MD [Primary Care Provider] - One Week New Prescriptions: Oxymetazoline [Afrin] 2 spr DIANA Q8H #1 bottle CloNIDine (Antihypertensive) [Catapres] 0.2 mg PO TID #30 tablet Valsartan [Diovan] 160 mg PO HS #30 tablet Hydralazine HCl 100 mg PO TID #60 tablet Lisinopril/Hydrochlorothiazide [Lisinopril-Hctz 20-25 mg Tab] 1 each PO DAILY # 30 tablet Metoprolol Tartrate [Lopressor] 75 mg PO BID #60 tablet Amlodipine [Norvasc] 10 mg PO DAILY #30 tab Vitamins, [ Vitamin] 1 tab PO DAILY@1200 #100 tablet Thiamine [Thiamine, Vitamin B-1] 100 mg PO DAILY@1200 #100 tablet Discharge Home Medication List Alprazolam [Xanax] 1 mg PO BID PRN 11/09/13 [History Confirmed 03/18/16] Oxycodone HCl [Oxycodone Immediate Release] 15 mg PO QID 11/09/13 [History Confirmed 03/18/16] Potassium Chloride 10 meq PO DAILY 11/09/13 [History Confirmed 03/18/16] Amlodipine [Norvasc] 10 mg PO DAILY #30 tab 03/21/16 [Rx] CloNIDine (Antihypertensive) [Catapres] 0.2 mg PO TID #30 tablet 03/21/16 [Rx] Hydralazine HCl 100 mg PO TID #60 tablet 03/21/16 [Rx] Labetalol HCl 300 mg PO BID #60 tablet 03/21/16 [Rx] Lisinopril/Hydrochlorothiazide [Lisinopril-Hctz 20-25 mg Tab] 1 each PO DAILY # 30 tablet 03/21/16 [Rx] Oxymetazoline [Afrin] 2 spr DIANA Q8H #1 bottle 03/21/16 [Rx] Thiamine [Thiamine, Vitamin B-1] 100 mg PO DAILY@1200 #100 tablet 03/21/16 [Rx] Valsartan [Diovan] 160 mg PO HS #30 tablet 03/21/16 [Rx] Vitamins, [ Vitamin] 1 tab PO DAILY@1200 #100 tablet 03/21/16 [ Rx] New Discharge Medications (Rx) Amlodipine [Norvasc] 10 mg PO DAILY #30 tab 03/21/16 [Rx] CloNIDine (Antihypertensive) [Catapres] 0.2 mg PO TID #30 tablet 03/21/16 [Rx] Hydralazine HCl 100 mg PO TID #60 tablet 03/21/16 [Rx] Labetalol HCl 300 mg PO BID #60 tablet 03/21/16 [Rx] Lisinopril/Hydrochlorothiazide [Lisinopril-Hctz 20-25 mg Tab] 1 each PO DAILY # 30 tablet 03/21/16 [Rx] Oxymetazoline [Afrin] 2 spr DIANA Q8H #1 bottle 03/21/16 [Rx] Thiamine [Thiamine, Vitamin B-1] 100 mg PO DAILY@1200 #100 tablet 03/21/16 [Rx] Valsartan [Diovan] 160 mg PO HS #30 tablet 03/21/16 [Rx] Vitamins, [ Vitamin] 1 tab PO DAILY@1200 #100 tablet 03/21/16 [ Rx] O2 Device: Room Air Diet at Discharge: As Tolerated, Low Salt Activity: No Restrictions Call Office For: Worsening Symptoms, Fever over 100.5, Pain Uncontrolled By Meds Discontinue use of:: All Types of Tobacco - DC Summary Notes Hospital Course Note:: Discharge summary on patient named PAULY MANRIQUE admitted to [facility] 03[facility]18[facility]16 by Roger Steinberg MD. Date of discharge is []. Pleasant 50-year-old gentleman presented to our emergency department with a nose bleed. His nose required packing and his blood pressure was very elevated. He was started on IV and oral blood pressure medicines. He states that he ran out of his blood pressure medicines 3 or 4 days prior to presentation. Apparently this was because the pharmacy could not deliver his medicines due to the snow. His blood pressures were so high that he continued to have problems with nose bleeding. His nasal packing became dislodged from his nose and I had to consult Dr. Brito to replace it. She placed a ajay rhino rocket and the bleeding finally stopped. Yesterday the patient was able to have the rhino rocket completely removed and did very well. He has not had any further nose bleeding. Today he ambulated in the halls with adequate blood pressures with the 140 systolic. At this point he has reached maximal benefit of hospitalization. He is stable for discharge home. Total Time: 55 minutes - Physical Exam Vital Signs: Last Vital Signs Temp 98.1 F 03/21/16 07:41 Pulse 60 03/21/16 14:20 Resp 18 03/21/16 10:42 BP 116/66 03/21/16 14:20 Pulse Ox 97 03/21/16 10:42 Oxygen Pulse Oxygen Saturation 97 O2 Device Room Air Oxygen Flow Rate Fraction of Inspired Oxygen ( FIO2) Constitutional: Alert (Awake, Fully oriented. Normal and appropriate affect.Well appearing. Well nourished.), No apparent distress Oriented to: Time, Person, Place - HEENT Nose: Bleeding - Respiratory/Cardiovascular Respiratory: Normal - CTA (Clear to auscultation bilaterally. No wheezing, rales , rhonchi. Chest wall movements are symmetric. No use of accessory muscles to breathe.) - GI Auscultation: Normal (normal active sounds) Palpation: Normal (Soft,non distended,nontender. No hepatosplenomegaly.) Tenderness: Non tender (No rebound or guarding) Smith's Sign: Negative - Musculoskeletal Back: Normal (Non-Tender) Extremities: Normal (Normal tone, DP pulses 2+ bilaterally, No cyanosis or edema bilaterally, FROM bilaterally.) - Integumentary Skin: Normal (Warm dry no rashes) Lymphatics: Normal (No cervical lymphadenopathy. No supraclavicular lymphadenopathy.) - Neurologic Memory Impaired: Normal Motor Function: Normal (Motor 5/5 throughout.Normal tone, Pulses 2+ No cyanosis or edema, FROM) Cranial Nerve: Normal (CN II-XII intact sensation, strength 5/5) Cerebellar: Normal (Babinski: toes downgoing bilaterally. Intact Finger to nose. Sensory grossly intact to light touch. Intact rapid alternating movements bilaterally. No pronator drift.) Mood Description: Agitated (Mildly agitated with bleeding nose) Thought: Coherent Perception: Normal (Normal and appropriate affect.)
== END 2016-03-21 16:00 | disposition home or self-care (01) | DRG 264 ==
LOC: ED 09:40 → OBSVTOIN 12:31 → EDINP 12:31 → PCU 16:43
PROVIDERS: ADMIT Internal Medicine; ATTEND Hospitalist
PROC: 0W3Q7ZZ Control Bleeding in Respiratory Tract, Via Natural or Artificial Opening (ICD-10-PCS; 2016-03-18)
PROC: 2Y41X5Z Packing of Nasal Region using Packing Material (ICD-10-PCS; 2016-03-18)
PROC: 05HM33Z Insertion of Infusion Device into Right Internal Jugular Vein, Percutaneous Approach (ICD-10-PCS; principal; 2016-03-19)
PROC: B543ZZA Ultrasonography of Right Jugular Veins, Guidance (ICD-10-PCS; 2016-03-19)
DX: I48.0 Paroxysmal atrial fibrillation (principal); I10 Essential (primary) hypertension; R04.0 Epistaxis; F10.10 Alcohol abuse, uncomplicated; M54.9 Dorsalgia, unspecified; G89.29 Other chronic pain; F17.210 Nicotine dependence, cigarettes, uncomplicated; F12.90 Cannabis use, unspecified, uncomplicated; M19.90 Unspecified osteoarthritis, unspecified site; Z79.899 Other long term (current) drug therapy
CPT/HCPCS: 30901; 36415; 71010; 80053; 80061; 80307; 82947; 83735; 83880; 84100; 84443; 84484; 85025; 85027; 85384; 85610; 85730; 86592; 86850; 86900; 86901; 90656; 90732; 93005; 96361; 96365; 96366; 96372; 96375; 96376; 99284; J1642; J1650; J2060; J2270; J3490; J7060; S0164